=== PATIENT | female | born 1965 | race Two or more races ===

== ENCOUNTER 2021-02-28 11:08 | Outpatient (CLI) | payer OTHER | END 2021-02-28 11:13 | disposition home or self-care (01) | LOC: SONOGRAMA 11:08 | PROVIDERS: ATTEND Pathology Anatomic Pathology & Clinical Pathology | DX: E04.1 Nontoxic single thyroid nodule (principal) ==

== ENCOUNTER 2021-05-09 11:02 | Outpatient (CLI) | payer OTHER | END 2021-05-09 11:05 | disposition home or self-care (01) | LOC: SONOGRAMA 11:02 | PROVIDERS: ATTEND Pathology Anatomic Pathology & Clinical Pathology | DX: R22.1 Localized swelling, mass and lump, neck (principal); C73 Malignant neoplasm of thyroid gland ==